=== PATIENT | female | born 1995 ===

== ENCOUNTER 2020-06-25 15:07 | Outpatient (CLI) | payer OTHER | END 2020-06-25 16:23 | disposition home or self-care (01) | LOC: OFIC 805 15:07 | PROVIDERS: ATTEND Otolaryngology Otology & Neurotology | DX: H60.8X2 Other otitis externa, left ear (principal); H92.02 Otalgia, left ear; H61.22 Impacted cerumen, left ear ==

== ENCOUNTER 2020-07-16 13:50 | Outpatient (CLI) | payer OTHER | END 2020-07-16 14:18 | disposition home or self-care (01) | LOC: OFIC 805 13:50 | PROVIDERS: ATTEND Otolaryngology Otology & Neurotology | DX: H60.8X2 Other otitis externa, left ear (principal); H92.02 Otalgia, left ear; H61.22 Impacted cerumen, left ear ==

== ENCOUNTER 2020-07-23 12:24 | Outpatient (CLI) | payer OTHER | END 2020-07-23 13:24 | disposition home or self-care (01) | LOC: OFIC 805 12:24 | PROVIDERS: ATTEND Otolaryngology Otology & Neurotology | DX: H60.8X2 Other otitis externa, left ear (principal); H92.02 Otalgia, left ear; H61.22 Impacted cerumen, left ear ==